=== PATIENT | female | born 1995 | race American Indian/Alaskan Native ===

== ENCOUNTER 2016-06-01 08:20 | Emergency (ER) | payer BC ==
[2016-06-01 08:55] VITALS: RESP 18
--- NOTE | 2016-06-01 09:02 | C.PDOC ---
History Of Present Illness 20 yr old female presents to ER for abdominal pain and left knee pain. Patient states the left knee pain is chronic, has had it for the last 2 years and is on Naproxen which doesn't help with the pain. Patient reports she has had nausea and vomiting, intermittently for the past 1 week. On exam patient denied abdominal pain, stating she will follow up with her PMD for the abdominal pain. Also denies fever, chest pain, SOB, diarrhea, weakness or numbness. Time Seen by Provider: 06/01/16 08:35 Chief Complaint (Nursing): Abdominal Pain History Per: Patient History/Exam Limitations: no limitations Onset/Duration Of Symptoms: Intermittent Episodes (1 week ) Current Symptoms Are (Timing): Still Present Severity: None Radiation Of Pain To:: None Quality Of Discomfort: Dull (left knee) Exacerbating Factors: Movement Recent travel outside of the [place]: No Past Medical History Reviewed: Historical Data, Nursing Documentation, Vital Signs Vital Signs: Last Vital Signs Temp 97.5 F L 06/01/16 10:42 Pulse 92 H 06/01/16 10:42 Resp 18 06/01/16 10:42 BP 121/79 06/01/16 10:42 Pulse Ox 98 06/01/16 10:42 - Medical History PMH: Anemia Surgical History: No Surg Hx Family History: States: No Known Family Hx - Social History Hx Alcohol Use: No Hx Substance Use: No Review Of Systems Except As Marked, All Systems Reviewed And Found Negative. Constitutional: Negative for: Fever Cardiovascular: Negative for: Chest Pain Respiratory: Negative for: Shortness of Breath Gastrointestinal: Positive for: Nausea, Vomiting. Negative for: Abdominal Pain , Diarrhea Musculoskeletal: Positive for: Other ((+) Left knee pain.) Neurological: Negative for: Weakness, Numbness Physical Exam - Physical Exam Appears: Well, Non-toxic, No Acute Distress Skin: Normal Color, Warm, Dry, No Rash Head: Atraumatic, Normacephalic Eye(s): bilateral: Normal Inspection, PERRL, EOMI Throat: Normal, No Erythema, No Exudate Neck: Normal, Normal ROM, Supple Chest: Symmetrical, No Tenderness Cardiovascular: Rhythm Regular, No Friction Rub, No Murmur Respiratory: Normal Breath Sounds Gastrointestinal/Abdominal: Normal Exam, Soft, No Tenderness, No Guarding, No Rebound Extremity: Tenderness (Left Knee - Tender to the anterior aspect ), No Calf Tenderness, No Swelling, Other ((+) Decrease ROM due to pain. ) Neurological/Psych: Oriented x3, Normal Speech, Normal Motor ED Course And Treatment - Laboratory Results Urine POC: Negative O2 Sat by Pulse Oximetry: 99 Pulse Ox Interpretation: Normal Progress Note: Treated with motrin 600 mg PO. Patient requesting discharge and follow up with PMD for further evaluation. On re-evaluation abdomen soft non- tender Reassessment Condition: Improved Medical Decision Making Medical Decision Making: PLAN: * HCG Urine * Urinalysis * Motrin PO Disposition Counseled Patient/Family Regarding: Studies Performed, Diagnosis, Need For Followup, Rx Given - Disposition Referrals: [facility] [place] [Outside] [facility] [Outside] [facility] [Outside] Disposition: HOME/ ROUTINE Disposition Time: 10:00 Condition: GOOD Additional Instructions: Follow up with your PMD or clinic for further evaluation Return to ED if any increase symptoms Prescriptions: Ibuprofen [Motrin] 1 tab PO TID PRN #30 tab PRN Reason: Pain Instructions: Knee Pain (ED), Knee Exercises (GEN), Abdominal Pain (ED) Forms: Work Excuse - POA Present On Arrival: None - Clinical Impression Clinical Impression: Abdominal pain, Nausea, Knee pain, chronic - 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 - Scribe Statement The provider has reviewed the documentation as recorded by the Scribe Daria Diego All medical record entries made by the Scribe were at my direction and personally dictated by me. I have reviewed the chart and agree that the record accurately reflects my personal performance of the history, physical exam, medical decision making, and the department course for this patient. I have also personally directed, reviewed, and agree with the discharge instructions and disposition.
[2016-06-01 09:36] LABS: URINE BILIRUBIN NEGATIVE (NEGATIVE); URINE BLOOD NEGATIVE (NEGATIVE); URINE COLOR Yellow (YELLOW); URINE GLUCOSE (UA) NORMAL (Normal); URINE KETONE NEGATIVE (NEGATIVE); URINE LEUKOCYTE ESTERASE NEG Leu/uL (Negative); URINE PROTEIN NEGATIVE (NEGATIVE); URINE UROBILINOGEN NORMAL mg/dL (0.2-1.0); WBC URINE 1 /hpf (0-5)
[2016-06-01 10:43] VITALS: BP 121/79; PULSE 92; TEMP 97.5
[2016-06-01 17:24] VITALS: O2SAT 99
== END 2016-06-01 10:43 | disposition home or self-care (01) ==
LOC: C.ER 08:20
DX: R10.9 Unspecified abdominal pain (principal); R11.0 Nausea; G89.29 Other chronic pain; M25.562 Pain in left knee

== ENCOUNTER 2016-06-07 10:51 | Emergency (ER) | payer BC ==
[2016-06-07 10:57] VITALS: BP 119/73; PULSE 84; RESP 16; TEMP 98.7; O2SAT 98
--- NOTE | 2016-06-07 11:28 | C.PDOC ---
History Of Present Illness 20 yr old female presents to the ER stating 2 days ago she was walking on the side walk when she slipped and accidentally hit her left big toe against the pavement. Patient reports since then she has been having pain to the area. Patient states she did ice it but the pain persists. Patient denies LOC, leg pain, foot pain, weakness or numbness. Time Seen by Provider: 06/07/16 11:17 Chief Complaint (Nursing): Lower Extremity Problem/Injury History Per: Patient History/Exam Limitations: no limitations Onset/Duration Of Symptoms: Days (2) Current Symptoms Are (Timing): Still Present Past Medical History Reviewed: Historical Data, Nursing Documentation, Vital Signs Vital Signs: Last Vital Signs Temp 98.7 F 06/07/16 10:55 Pulse 84 06/07/16 10:55 Resp 16 06/07/16 10:55 BP 119/73 06/07/16 10:55 Pulse Ox 98 06/07/16 18:42 - Medical History PMH: Anemia Family History: States: No Known Family Hx - Social History Hx Alcohol Use: No Hx Substance Use: No - Immunization History Hx Influenza Vaccination: No Review Of Systems Except As Marked, All Systems Reviewed And Found Negative. Musculoskeletal: Positive for: Other ((+) Left big toe pain.). Negative for: Leg Pain, Foot Pain Neurological: Negative for: Weakness, Numbness Physical Exam - Physical Exam Appears: Well, Non-toxic, No Acute Distress Skin: Normal Color, Warm, Dry, No Rash Head: Atraumatic, Normacephalic Eye(s): bilateral: Normal Inspection, PERRL, EOMI Extremity: Normal ROM, Tenderness (Left big toe, tender to palpation ), No Calf Tenderness, No Deformity, Swelling (Left Big Toe ), Other (No laceration. No abrasion. ) Neurological/Psych: Oriented x3, Normal Speech, Normal Motor, Normal Sensation ED Course And Treatment O2 Sat by Pulse Oximetry: 98 Pulse Ox Interpretation: Normal - Other Rad X-Ray - Left Foot X-Ray: Viewed By Me, Read By Radiologist Interpretation: PROCEDURE: Left great toe dated 06/07/2016. HISTORY: PAIN R/ O FX. COMPARISON: No prior study available for comparison. TECHNIQUE: PA view of the left foot and 2 additional cone-down views of the left great toe performed. FINDINGS: Current study reveals no evidence of acute displaced fracture nor dislocation. The osseous structures are intact. No cortical destructive changes. Minor hallux valgus deformity. Soft tissues unremarkable. IMPRESSION: No fracture seen. . If symptoms persist or occult fracture suspected clinically consider repeat radiographs in 5-10 days as most fractures should become radiographically evident this timeframe. Progress Note: KENNEDY WRAP AND POST OP SHOE PLACED. PT DECLINED CRUTCHES. Reevaluation Time: 12:00 Reassessment Condition: Improved Medical Decision Making Medical Decision Making: PLAN: * X-Ray - Left Foot * Motrin PO Disposition Counseled Patient/Family Regarding: Studies Performed, Diagnosis, Need For Followup, Rx Given - Disposition Referrals: Alessio Samuels DPM [[facility]] - Disposition: HOME/ ROUTINE Disposition Time: 12:02 Condition: STABLE Additional Instructions: FOLLOW UP WITH APPLICATIONS PROCESSOR IN 2 DAYS FOR RE-EVALUATION AND IF PAIN PERSISTS REPEAT XRAY. IF SYMPTOMS GET WORSE OR ANY NEW CONCERNING SYMPTOMS DEVELOP RETURN TO ED. 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 - Scribe Statement The provider has reviewed the documentation as recorded by the Scribe Daria Diego All medical record entries made by the Scribe were at my direction and personally dictated by me. I have reviewed the chart and agree that the record accurately reflects my personal performance of the history, physical exam, medical decision making, and the department course for this patient. I have also personally directed, reviewed, and agree with the discharge instructions and disposition.
--- NOTE | 2016-06-07 11:52 | RAD ---
PROCEDURE: Left great toe dated 06/07/2016. HISTORY: PAIN R/O FX COMPARISON: No prior study available for comparison. TECHNIQUE: PA view of the left foot and 2 additional cone-down views of the left great toe performed. FINDINGS: Current study reveals no evidence of acute displaced fracture nor dislocation. The osseous structures are intact. No cortical destructive changes. Minor hallux valgus deformity. Soft tissues unremarkable. IMPRESSION: No fracture seen. . If symptoms persist or occult fracture suspected clinically consider repeat radiographs in 5-10 days as most fractures should become radiographically evident this timeframe.
== END 2016-06-07 12:32 | disposition home or self-care (01) ==
LOC: C.ER 10:51
DX: S90.112A Contusion of left great toe without damage to nail, initial encounter (principal); W01.198A Fall on same level from slipping, tripping and stumbling with subsequent striking against other object, initial encounter; Y92.480 Sidewalk as the place of occurrence of the external cause

== ENCOUNTER 2017-04-26 19:46 | Emergency (ER) | payer BC ==
[2017-04-26 20:26] VITALS: BP 111/76; PULSE 98; TEMP 97; O2SAT 99
--- NOTE | 2017-04-26 20:57 | C.PDOC ---
History Of Present Illness 21 year old female presents to the ED for evaluation of an intermittent frontal headache which began around 1 month ago. Patient notes headache is associated with nausea. Patient denies photophobia, neck pain, fever, or URI symptoms. Patient states she took Advil with some relief. She notes her symptoms are usually worse in the morning and have currently subsided. Patient additionally reports left ankle and left heel pain for 2 months. Patient states she stands a lot a work and her pain is usually worse after she has finished working. Additionally, patient is requesting a cream for her yeast infection. Patient denies trauma/injuries. Time Seen by Provider: 04/26/17 20:42 Chief Complaint (Nursing): Headache History Per: Patient History/Exam Limitations: no limitations Onset/Duration Of Symptoms: Other (month ) Current Symptoms Are (Timing): Still Present Quality: "Pain" Preceeding Symptoms: denies: Visual Disturbances Associated Symptoms: Nausea. denies: Photophobia, Blurred Vision Additional History Per: Patient Past Medical History Reviewed: Historical Data, Nursing Documentation, Vital Signs Vital Signs: Last Vital Signs Temp 97 F L 04/26/17 20:17 Pulse 98 H 04/26/17 20:17 Resp 20 04/26/17 21:15 BP 111/76 04/26/17 20:17 Pulse Ox 99 04/26/17 21:51 - Medical History PMH: Anemia Surgical History: No Surg Hx Family History: States: Unknown Family Hx - Social History Hx Alcohol Use: No Hx Substance Use: No - Immunization History Hx Tetanus Toxoid Vaccination: No Hx Influenza Vaccination: No Hx Pneumococcal Vaccination: No Review Of Systems Eyes: Negative for: Other (photophobia ) Gastrointestinal: Positive for: Nausea. Negative for: Vomiting Musculoskeletal: Positive for: Other (left ankle and left heel pain ). Negative for: Neck Pain Neurological: Positive for: Headache (frontal ). Negative for: Dizziness Physical Exam - Physical Exam Appears: Non-toxic, No Acute Distress Skin: Normal Color, Warm, Dry, No Other (erythema ) Head: Atraumatic, Normacephalic, No Tenderness (frontal sinus ) Eye(s): bilateral: Normal Inspection Ear(s): Bilateral: Normal Nose: Normal, No Discharge Oral Mucosa: Moist Throat: Normal, No Erythema, No Exudate Neck: Supple, No Other (meningeal signs ) Chest: Symmetrical, No Deformity, No Tenderness Cardiovascular: Rhythm Regular, No Murmur Respiratory: Normal Breath Sounds, No Rales, No Rhonchi, No Wheezing Extremity: Normal ROM (left foot and ankle ), Tenderness (left calcaneal area), Capillary Refill (less than 2 seconds ), No Deformity, No Swelling Pulses: Left Dorsalis Pedis: Normal Neurological/Psych: Oriented x3, Normal Speech, Normal Cognition, Normal Sensation Gait: Steady ED Course And Treatment O2 Sat by Pulse Oximetry: 99 (on RA) Pulse Ox Interpretation: Normal Progress Note: On reassessment, patient is resting comfortably, showing no signs of distress, is observed talking loudly on the phone. Patient is stable for discharge and is advised to f/u with her PMD/ podiatry and/or return to the ED if symptoms persist or worsen. Disposition Counseled Patient/Family Regarding: Diagnosis, Need For Followup, Rx Given - Disposition Disposition: HOME/ ROUTINE Disposition Time: 20:54 Condition: STABLE Additional Instructions: Please follow up with PMD Take meds as directed Follow up with Podiatry Return to ER if worse Prescriptions: Acetaminophen/Butalbital/Caf [Fioricet] 1 tab PO TID #30 tab Clotrimazole [Clotrimazole-7] 45 gm VG DAILY #7 cream.appl Ibuprofen [Motrin] 600 mg PO Q6H #20 tab Instructions: Headache, Adult Forms: [facility] ([place]), Work Excuse - Clinical Impression Clinical Impression: Headache, Heel pain - 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 - Scribe Statement The provider has reviewed the documentation as recorded by the Scribe (Safia Li) All medical record entries made by the Scribe were at my direction and personally dictated by me. I have reviewed the chart and agree that the record accurately reflects my personal performance of the history, physical exam, medical decision making, and the department course for this patient. I have also personally directed, reviewed, and agree with the discharge instructions and disposition.
[2017-04-26 21:16] VITALS: RESP 20
== END 2017-04-26 21:15 | disposition home or self-care (01) ==
LOC: C.ER 19:46
DX: R51 Headache (principal); M79.672 Pain in left foot

== ENCOUNTER 2017-06-01 17:58 | Emergency (ER) | payer BC ==
[2017-06-01 18:25] VITALS: BMI 36.8
[2017-06-01 18:26] VITALS: BP 118/73; PULSE 98; RESP 16; TEMP 97.6; O2SAT 95
--- NOTE | 2017-06-01 18:50 | C.PDOC ---
History Of Present Illness 21 yo female come in for evaluation of painful swelling over Right buttock gradually developed for past 4-5 days. Pt reports, " tried to squeeze it, worsen ". Otherwise, pt denies fever, chills, abd. apin, N/V, changes in BM, wound draining, denies nay other active complaints. Similar sx in past. Ambulate to Ed for evaluation, not in any apparent distress. Time Seen by Provider: 06/01/17 18:33 Chief Complaint (Nursing): Abnormal Skin Integrity History Per: Patient Onset/Duration Of Symptoms: Gradual Past Medical History Reviewed: Historical Data, Nursing Documentation, Vital Signs Vital Signs: Last Vital Signs Temp 97.6 F 06/01/17 18:25 Pulse 98 H 06/01/17 18:25 Resp 16 06/01/17 18:25 BP 118/73 06/01/17 18:25 Pulse Ox 95 06/01/17 18:54 - Medical History PMH: Anemia Family History: States: Unknown Family Hx - Social History Hx Tobacco Use: No Hx Alcohol Use: No Hx Substance Use: No - Immunization History Hx Tetanus Toxoid Vaccination: No Hx Influenza Vaccination: No Hx Pneumococcal Vaccination: No Review Of Systems Except As Marked, All Systems Reviewed And Found Negative. Constitutional: Negative for: Fever, Chills Gastrointestinal: Negative for: Nausea, Vomiting, Abdominal Pain, Diarrhea, Melena, Hematochezia, Hematemesis Genitourinary: Negative for: Dysuria, Incontinence Musculoskeletal: Negative for: Neck Pain, Back Pain Skin: Positive for: Lesions Neurological: Negative for: Weakness, Numbness Physical Exam - Physical Exam Appears: Well, Non-toxic, No Acute Distress Skin: Normal Color, Warm, Other (Right gluteus small tender soft pustula 2cm diameter with mild area of erythema. NO flactulance, no prxomal streaking.) Head: Normacephalic Nose: No Flaring Oral Mucosa: Moist Throat: No Erythema Neck: Trachea Midline, Supple Gastrointestinal/Abdominal: Soft, No Tenderness, No Distention, No Guarding, No Rebound Back: No CVA Tenderness Extremity: Normal ROM, No Pedal Edema, No Deformity, No Swelling Neurological/Psych: Oriented x3, Normal Speech, Normal Motor, Normal Sensation, Normal Reflexes ED Course And Treatment O2 Sat by Pulse Oximetry: 95 Progress Note: On re-evaluation, pt is afebrile, hemodynamicaly stable. Non- toxic. AMbulatory in ED with stable gait. Abd: benign. Back: (-) CVA tenderness. SKin: (+) small tender pustula to Right gluteus, no cellulitis, no flactulance. POC- negative. Pt was given abx. Advised on course of ds. ref. to f/u with PMD in 2 days for re-eavl. return to ED if a ny worsening or new changes. Disposition Counseled Patient/Family Regarding: Diagnosis, Need For Followup, Rx Given - Disposition Referrals: [facility] [Outside] Disposition: HOME/ ROUTINE Disposition Time: 18:50 Condition: STABLE Additional Instructions: Warm salty water compresses to area 2-3 times daily for 5 minutes Take medication as prescribed Follow up with PMD in 2 days for re-evaluation. return to ED if any worsening or new changes. Prescriptions: Doxycycline Hyclate [Doryx] 100 mg PO BID #14 cap traMADol [Ultram] 50 mg PO BID #7 tab Instructions: Skin Abscess Forms: [facility] (Kyrgyz), Work Excuse - Clinical Impression Clinical Impression: Pustular folliculitis
== END 2017-06-01 19:09 | disposition home or self-care (01) ==
LOC: C.ER 17:58
DX: L73.9 Follicular disorder, unspecified (principal)